=== PATIENT | female | born 1935 | race Caucasian/White ===

== ENCOUNTER → 2018-10-28 | Outpatient (CLI) | payer MEDICARE ==
[~2018-10-28] MED LIST: DIGO125T PO; HYDROCHLOROTH12.5 MG PO; LEVO75TA5 PO; LOVA40TA2 PO; SOTA160T PO; WARF-36 PO; WARF2.5T32 PO; ZOLP5TAB6 PO
== END | disposition home or self-care (01) ==
LOC: CFH 07:30
PROVIDERS: ATTEND Internal Medicine Cardiovascular Disease
DX: I08.8 Other rheumatic multiple valve diseases (principal); I10 Essential (primary) hypertension; Z95.0 Presence of cardiac pacemaker
CPT/HCPCS: 93306

== ENCOUNTER 2020-11-13 18:12 | Emergency (ER) | payer MEDICARE ==
[~2020-11-13] VITALS: Ht 167.6 cm; Wt 66.6 kg
[~2020-11-13 18:12] MED LIST changes: -DIGO125T PO; +DIGO125T85 PO
--- NOTE | 2020-11-13 18:38 | NUR ---
PT BIB FRIEND VIA POV. PER PT SHE HAD A MECHANICAL GLF TODAY, PT STATES HIT HEAD AND HURT RIGHT HAND. DENIES LOC. PT TRIPPED IN GARAGE AND HIT HEAD ON BOX. PT ON WARFARIN FOR AFIB. PT RESTING IN GURNEY, FRIEND AND GRANDDAUGHTER AT BEDSIDE, DR. WELLS AT BEDSIDE FOR EVAL, MONITORING IN PLACE, NADN AT THIS TIME, [facility].
[2020-11-13 19:03] LABS: ALBUMIN 3.5 g/dL (3.4-5.0); ANION GAP 5 mmol/L (5-15); CALCIUM 9.4 mg/dL (8.5-10.1); CHLORIDE 110 mmol/L (98-107); CREATININE 0.88 mg/dL (0.55-1.02); INTERNATIONAL NORMALIZED RATIO 2.18 (0.93-1.1)
[2020-11-13 19:09] LABS: BASOPHILS % (AUTO) 1 % (0-1); EOSINOPHILS % (AUTO) 2 % (1-7); LYMPHOCYTES % (AUTO) 20 % (22-44); MEAN CORPUSCULAR HEMOGLOBIN 27.7 pg (27.0-34.8); MEAN CORPUSCULAR HGB CONC 32.8 g/dL (32.4-35.8); MONOCYTES % (AUTO) 8 % (2-9); NEUTROPHILS % (AUTO) 70 % (42-75); PLATELET COUNT 248 x10^3/uL (130-400); RED BLOOD COUNT 4.45 x10^6/uL (3.82-5.3); RED CELL DISTRIBUTION WIDTH 14.7 % (9.6-15.2)
[2020-11-13 19:13] LABS: MD NO
[2020-11-13 20:15] VITALS: BP 155/93
== END 2020-11-13 21:27 | disposition home or self-care (01) ==
LOC: ED 18:33
DX: S06.0X0A Concussion without loss of consciousness, initial encounter (principal); M25.531 Pain in right wrist; I48.91 Unspecified atrial fibrillation; Z85.3 Personal history of malignant neoplasm of breast; Z88.0 Allergy status to penicillin; Z95.0 Presence of cardiac pacemaker; W01.0XXA Fall on same level from slipping, tripping and stumbling without subsequent striking against object, initial encounter; Y93.89 Activity, other specified; Y92.89 Other specified places as the place of occurrence of the external cause; Y99.8 Other external cause status
CPT/HCPCS: 29125; 36415; 70450; 80048; 82040; 85025; 85610; 85730; 99285

== ENCOUNTER → 2021-02-03 | Outpatient (CLI) | payer MEDICARE | END | disposition home or self-care (01) | LOC: CFH 14:08 | PROVIDERS: ATTEND Internal Medicine Cardiovascular Disease | DX: I08.1 Rheumatic disorders of both mitral and tricuspid valves (principal); I48.91 Unspecified atrial fibrillation; I11.9 Hypertensive heart disease without heart failure; Z95.0 Presence of cardiac pacemaker | CPT/HCPCS: 93306 ==